=== PATIENT | female | born 2000 | race Caucasian/White ===

== ENCOUNTER 2018-01-07 20:54 | Day surgery (SDC) | payer OTHER ==
[2018-01-07 21:24] VITALS: BP 130/76; TEMP 99.1; BMI 27.6
--- NOTE | 2018-01-07 23:33 | PDOC.EVN ---
Event Note - Event Note Event Note: Patient's cervical check unchanged at 1.5/60/-2. Will d/c home with f/u with PCP.
--- NOTE | 2018-01-08 04:03 | ER ---
DATE OF SERVICE: 01/07/2018 PRIMARY CAR WHACKER: Nydia Abad MD. CHIEF COMPLAINT: Abdominal pain. HISTORY OF PRESENT ILLNESS: The patient is a 17-year-old, P1, G0 female with an intrauterine at 39 weeks and 2 days, presenting with uterine contractions, and the patient reports that she has been having abdominal pain . The patient denies any leakage of fluids; though she does report a little bit of bloody show. The patient denies any recent illness, fever, falls, headache, chest pain, shortness of breath, nausea, vomiting, diarrhea or constipation, any new rashes, hip problems, knee problems, muscle weakness or urinary urgency. PAST MEDICAL HISTORY: Asthma. PAST SURGICAL HISTORY: Negative. ALLERGIES: PENICILLIN. SOCIAL HISTORY: Denies drug, alcohol or tobacco use. OB LABS: One-hour Glucola 110. Hepatitis B surface antigen negative. HIV in first trimester is negative. She is rubella immune. Group B strep is negative. RPR is negative in first trimester. Blood type is O positive. Antibody screen is negative. REVIEW OF SYSTEMS: Per HPI. PHYSICAL EXAMINATION: VITAL SIGNS: Blood pressure 130/76, heart rate of 82, temperature of 99.1. GENERAL: She appears to be in no acute distress. She is alert, oriented, cooperative, and pleasant to interact with. HEAD: Normocephalic and atraumatic. LUNGS: Clear to auscultation bilaterally. HEART: Regular rate and rhythm. ABDOMEN: Soft, gravid and nontender. EXTREMITIES: Nontender and nonedematous. : Cervix is 1.5, 60 and -2 station, unchanged after 2 hours. heart tracing for abdominal pain and shows at baseline in the 120s with moderate long-term variability, positive accelerations and no decelerations. Tocometer shows irritability with contractions that appear to be every 20 minutes or so. ASSESSMENT AND PLAN: The patient is a 17-year-old G1, P0 female with an intrauterine at 39 weeks and 2 days, having term contractions, but no evidence of labor, reactive NSTs. The patient is being discharged to home with instructions to follow up with her primary as scheduled. Job ID: [id number]
== END 2018-01-07 23:30 | disposition home or self-care (01) ==
LOC: L&D/OP 20:54
PROVIDERS: ATTEND Family Medicine
DX: O99.89 Other specified diseases and conditions complicating pregnancy, childbirth and the puerperium (principal); R10.9 Unspecified abdominal pain; O99.513 Diseases of the respiratory system complicating pregnancy, third trimester; J45.909 Unspecified asthma, uncomplicated; Z3A.39 39 weeks gestation of pregnancy; Z79.899 Other long term (current) drug therapy; Z88.0 Allergy status to penicillin; Z91.010 Allergy to peanuts

== ENCOUNTER 2018-01-08 20:31 | Inpatient (IN) | payer OTHER ==
[2018-01-08 20:54] VITALS: BMI 26.6
[2018-01-08] MEDS ORDERED: Ondansetron ODT 4 MG TAB PO SCH (22:00)
[2018-01-08 23:09] LABS: Amnisure Test RUPTURE DETECTED (No Rupture)
[2018-01-08 23:10] LABS: Amnisure Internal Control QC ACCEPTABLE (ACCEPTABLE)
[2018-01-08] MEDS ORDERED: Lactated Ringer's 1,000 ML IV SCH (23:46)
[2018-01-08] MEDS ORDERED: Promethazine HCl 25 MG/ML VIAL IM PRN (23:46)
[2018-01-08] MEDS ORDERED: NS w/ Oxytocin 10 units 500 ML IV SCH (23:46)
[2018-01-08] MEDS ORDERED: Lidocaine 1% (PF) 30 ML VIAL SC PRN (23:46)
[2018-01-08] MEDS ORDERED: Ibuprofen 800 MG TAB PO PRN (23:46)
[2018-01-08] MEDS ORDERED: HYDROcodone/Acetaminophen 5/325 mg Tablet PO PRN ×2 (23:46)
[2018-01-08] MEDS ORDERED: NS / Oxytocin 40 units/1000ml 1,000 ML IV PRN (23:46)
[2018-01-08] MEDS ORDERED: Ondansetron PF 4 MG/2 ML Vial IVP PRN (23:46)
[2018-01-08] MEDS ORDERED: Butorphanol Tartrate 1 MG/ML VIAL SLOW IVP PRN (23:46)
[2018-01-08] MEDS ORDERED: Fentanyl 4 mcg/Bup 0.1% Cadd 100 ML ONE (23:47)
[2018-01-08 23:53] LABS: Hemoglobin 12.9 g/dL (12.0-16.0); Mean Corpuscular HGB CONC 35.4 g/dL (32.0-36.0); Mean Corpuscular Hemoglobin 33.3 pg (25.0-35.0); Mean Corpuscular Volume 94.1 fL (78.0-98.0); Mean Platelet Volume 9.2 fL (7.4-10.4); Platelet Count 177 thou/uL (130-400); RBC Distribution Width 12.2 % (11.5-14.5); Red Blood Cell (RBC) Count 3.87 mill/uL (4.00-5.20); White Blood Cell (WBC) Count 9.2 thou/uL (4.8-10.8)
[2018-01-09 00:21] LABS: Syphilis Antibody Nonreactive (Nonreactive); Syphilis Antibody Index 0.05 S/CO (<1.00 Non-Reactive)
[2018-01-09] MEDS: Lactated Ringer's 1,000 ML IV SCH ×2 (00:29→09:32)
[2018-01-09 00:32] LABS: Hep B Surf Ag Non-Reactive S/CO (NonReactive)
[2018-01-09] MEDS ORDERED: Eucerin (Mineral Oil/Petrolatum,White) 30 gm Jar TOP PRN (00:56)
[2018-01-09] MEDS ORDERED: diphenhydrAMINE 50 MG/ML VIAL IVP PRN (00:56)
[2018-01-09] MEDS ORDERED: Naloxone HCl 0.4 mg/ml Vial IVP PRN ×2 (00:56)
[2018-01-09] MEDS ORDERED: Promethazine HCl 25 MG/ML VIAL IM PRN (00:56)
[2018-01-09] MEDS ORDERED: Lactated Ringer's 500 ML IV PRN (00:56)
[2018-01-09] MEDS ORDERED: Acetaminophen 325 MG TAB PO PRN (00:56)
[2018-01-09] MEDS ORDERED: ePHEDrine/0.9% NaCl/PF SYRINGE 50 mg/10 ml SLOW IVP PRN (00:56)
[2018-01-09] MEDS ORDERED: Ondansetron PF 4 MG/2 ML Vial IVP PRN (00:56)
[2018-01-09] MEDS ORDERED: Communication Order-Pharmacy FS SCH (01:00)
[2018-01-09] MEDS ORDERED: Fentanyl 4 mcg/Bupivacaine 0.1% Cassette 100 ML EPIDURAL SCH (01:00)
[2018-01-09] MEDS ORDERED: Fentanyl 4 mcg/Bup 0.1% Cadd 100 ML ONE (07:28)
[2018-01-09] MEDS ORDERED: Lanolin Ointment 7 GM TUBE TOP PRN (14:38)
[2018-01-09] MEDS ORDERED: Milk Of Magnesia 30 ML UDCUP PO PRN (14:38)
[2018-01-09] MEDS ORDERED: Bisacodyl 10 MG SUPP PR PRN (14:38)
[2018-01-09] MEDS ORDERED: NS / Oxytocin 40 units/1000ml 1,000 ML IV SCH (14:38)
[2018-01-09] MEDS ORDERED: HYDROcodone/Acetaminophen 5/325 mg Tablet PO PRN (14:38)
[2018-01-09] MEDS: Ibuprofen 800 MG TAB PO SCH (17:38)
[2018-01-09] MEDS: Ferrous Sulfate 325 MG TAB PO SCH (17:50)
[2018-01-09] MEDS: Docusate Calcium (SURFAK) 240 MG CAP PO SCH (21:51)
[2018-01-10] MEDS: Ibuprofen 800 MG TAB PO SCH ×2 (01:13→08:52)
--- NOTE | 2018-01-10 07:51 | DN ---
DATE OF PROCEDURE: 01/09/2018 DATE OF DELIVERY: 01/09/2018 PREOPERATIVE DIAGNOSIS: Term intrauterine in labor POSTOPERATIVE DIAGNOSES: Term intrauterine in labor as well as a second degree perineal laceration. PROCEDURES PERFORMED: Spontaneous vaginal delivery and laceration repair. ANESTHESIA: Epidural. ESTIMATED BLOOD LOSS: 140 mL. BRIEF DELIVERY SUMMARY: This is a 17-year-old G1, now P1, who presented in active labor. She progressed to complete and pushing. well being throughout the labor course was unremarkable. She delivered a live male infant, head OA. There was a loose nuchal cord, which was unable to be reduced prior to delivery of the shoulders. Shoulders and body easily followed and the baby was then descenting out from the cord and placed on mother's abdomen. 's Apgars were 9 at 1 minute and 10 at 5 minutes. The umbilical cord was doubly clamped and cut, and cord blood was sent for analysis. Placenta delivered spontaneously and intact. The 3-vessel umbilical cord, uterine fundus was firm following evacuation of the placenta and Pitocin was hanging in the IV. There was a second degree perineal laceration, which was repaired in standard running fashion using 2-0 Vicryl suture under epidural anesthesia with excellent hemostasis. There was also a small bleeding area on the left vaginal sidewall at the hymenal ring; this was repaired with a single [id number] suture without any complications. Mom and baby were left with the nurse in excellent condition, and attempting to breast feed. Job ID: [id number]
[2018-01-10 08:24] VITALS: TEMP 98.2
[2018-01-10] MEDS: Ferrous Sulfate 325 MG TAB PO SCH (08:52)
[2018-01-10] MEDS: Docusate Calcium (SURFAK) 240 MG CAP PO SCH (08:52)
[2018-01-10] MEDS ORDERED: Bupivacaine 0.25% HCL 30 ML VIAL ONE (11:11)
[2018-01-10 11:56] VITALS: BP 121/72
--- NOTE | 2018-01-10 13:10 | PDOC.PP ---
Post Progress Note Post Day #: 1 Subjective: Doing well. No c/o. Lochia normal. PO intake tolerated: yes Flatus: yes Ambulation: yes Vital Signs (12 hours) Temp Pulse Resp BP Pulse Ox 01/10/18 11:56 98.2 F 73 20 121/72 01/10/18 08:23 98.2 F 80 20 125/76 96 01/10/18 04:35 98.0 F 76 18 120/72 01/10/18 01:20 97.7 F 89 18 116/63 Weight Weight 146 lb - Physical Examination General: NAD Cardiovascular: no m/r/g, RRR Respiratory: clear to auscultation bilaterally, non-labored breathing Abdominal: + bowel sounds, lochia, no distention, appropriately TTP Psychiatric: A&Ox3, normal affect Result Diagrams: 01/08/18 23:48 Additional Labs: Post Labs Blood Type O POSITIVE 01/08/18 23:48 Hep Bs Antigen Non-Reactive S/CO (NonReactive) 01/08/18 23:48 (1) Vaginal delivery Code(s): O80 - ENCOUNTER FOR FULL-TERM UNCOMPLICATED DELIVERY Status: Acute - Assessment/Plan Routine care. D/C home today.
== END 2018-01-10 17:10 | disposition home or self-care (01) | DRG 807 ==
LOC: L&D/OP 20:31 → L&D 23:24 → 3SW 01-09 17:29
PROVIDERS: ADMIT Family Medicine; ATTEND Family Medicine
PROC: 10E0XZZ Delivery of Products of Conception, External Approach (ICD-10-PCS; principal; 2018-01-09)
PROC: 0KQM0ZZ Repair Perineum Muscle, Open Approach (ICD-10-PCS; 2018-01-09)
DX: O70.1 Second degree perineal laceration during delivery (principal); Z37.0 Single live birth; Z3A.39 39 weeks gestation of pregnancy; Z88.0 Allergy status to penicillin; Z91.010 Allergy to peanuts
CPT/HCPCS: 51702; 84112; 85027; 86780; 86850; 86900; 86901; 87340; 99283; 99285; J2001; Q0162; S0020